=== PATIENT | female | born 1955 | race Caucasian/White ===

== ENCOUNTER 2020-02-19 11:42 | Outpatient (CLI) | payer OTHER, SELFPAY ==
--- NOTE | ~2020-02-19 | XR_ITS ---
EXAMINATION: XR ribs BI 3V w CXR 2V INDICATION: Pleurodynia TECHNIQUE: PA and lateral views of the chest and 3 views of the bilateral ribs were obtained. COMPARISON: 08/18/2014 FINDINGS: There is mild irregularity at the anterolateral aspect of the left ninth rib. Minimal airsp akilah opacities are seen in the right lung base. There is no pleural effusion or pneumothorax. The card iomediastinal silhouette is normal. There is mild thoracic spondylosis. IMPRESSION: 1. Possible nondisplaced fracture of the left ninth rib. 2. Minimal left basilar airspace opacity, consistent with atelectasis versus pneumonia. Reviewed, dictated and finalized at location A. IMPRESSION: 1. Possible nondisplaced fracture of the left ninth rib. 2. Minimal left basilar airspace opacity, consistent with atelectasis versus pn eumonia.
== END 2020-02-19 11:43 | disposition home or self-care (01) ==
LOC: ANHIMG 11:53
PROVIDERS: PCP Family Medicine; Visit Provider Family Medicine
DX: R07.81 Pleurodynia (principal); R05 Cough; R91.8 Other nonspecific abnormal finding of lung field
CPT/HCPCS: 71046; 71110

== ENCOUNTER → 2020-12-06 15:52 | Outpatient (CLI) | payer MEDICARE, SELFPAY ==
--- NOTE | ~2020-12-06 | MM_ITS ---
EXAMINATION: MM screening nicolás BI w kelly HISTORY: Screening TECHNIQUE: Craniocaudal and mediolateral oblique 3-D tomosynthesis images were obtained and synthetic 2-D images were generated. CAD analysis was submitted and interpreted. COMPARISON: Comparison to multiple prior studies sequentially, with oldest reviewed study dated 04/24. BREAST PARENCHYMAL COMPOSITION: There are scattered areas of fibroglandular density. FINDINGS: There is no evidence of suspicious mass, calcification, or architectural distortion to sugg est malignancy in either breast. There has been no suspicious interval change. IMPRESSION: 1. No mammographic evidence of malignancy. 2. Recommend routine screening mammography in one year. BI-RADS Category 1: Negative Reviewed, dictated and finalized at location A. 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
== END ==
PROVIDERS: Visit Provider Physician Assistant
DX: Z12.31 Encounter for screening mammogram for malignant neoplasm of breast (principal)
CPT/HCPCS: 77063; 77067

== ENCOUNTER → 2020-12-07 00:47 | Outpatient (CLI) | payer MEDICARE, SELFPAY ==
[2020-12-07 20:39] LABS: SARS-CoV-2 RNA PCR Negative
== END ==
PROVIDERS: Visit Provider Internal Medicine Gastroenterology
DX: Z01.812 Encounter for preprocedural laboratory examination (principal); Z20.822 Contact with and (suspected) exposure to COVID-19
CPT/HCPCS: C9803; U0003; U0005

== ENCOUNTER 2020-12-10 02:18 | Day surgery (SDC) | payer MEDICARE, SELFPAY ==
[2020-12-03 10:42] VITALS: BMI 28.9
[2020-12-10 08:37] VITALS: BP 128/69; PULSE 105; RESP 18; TEMP 36.5; O2SAT 95; BMI 29.0
[2020-12-10] MEDS: LACTATED RINGERS 1,000 ML 150 ML IV CONT (08:55)
--- NOTE | 2020-12-10 08:57 | WPDGICN ---
Assessment and Plan Assessment and plan (1) BRBPR (bright red blood per rectum): Code(s): K62.5 - Hemorrhage of anus and rectum Status: Acute Assessment and Plan: Patient had recent episode of rectal bleeding. Colonoscopy will be performed to establish etiology for this. High-fiber diet is advised as this may help if hemorrhoids are present. (2) History of colon polyps: Code(s): Z86.010 - Personal history of colonic polyps Status: Acute Assessment and Plan: Patient has a prior history of colon polyps for this reason surveillance colonoscopy is recommended now and at intervals in the future. GI Consult Note Consult date/time: 12/10/20 08:57 HPI: Mary Urias is a 65 year old female Presents for follow-up colonoscopy. Patient has a history of bright red blood per rectum that lasted for 3 days. This occurred several weeks ago. She did notice associated rectal Burning. She states her bowel habits have been regular. With balls of stool. She does have a prior history of colonoscopy 7 years ago were colon polyps were identified. Patient's family history is noncontributory. Patient denies any weight loss. She states her appetite has been normal. Review of Systems Review of Systems: All systems reviewed & are unremarkable except as noted in HPI and below PMFSH Past Medical History Medical History Chronic obstructive pulmonary disease Hyperlipidemia Hypertension Osteoarthritis Tobacco abuse Surgical History Surgical History History of delivery History of shoulder surgery History of tonsillectomy Family History Family History Father Diabetes mellitus Mother Diabetes mellitus Grandparent Family history of cardiovascular disease Social History Social History Smoking packs per day: 1 Smoking cigarettes per day: 20.0 Years smoked: 30 Smoking pack-years: 30.00 Smoking status: Current every day smoker Tobacco type: cigarettes Second hand tobacco smoke exposure: No Alcohol intake: never Substance use: never Substance use type: does not use Living arrangements: with family Gender identity (if verbalized by the patient): Female Spiritual care concerns: No Agree to blood products: Yes Meds Home Medications and Allergies Home Medications Medication Instructions Recorded Confirmed Type Lactobacillus reuteri 100 million 100 cell PO BID tablet 02/16/20 12/03/20 History cell chewable tablet aspirin 81 mg tablet,delayed 81 mg PO DAILY 02/16/20 12/03/20 History release calcium carbonate 500 mg-vitamin 1 tablet PO DAILY 02/16/20 12/03/20 History D3 200 unit-vitamin K2 90 mcg tablet diclofenac sodium 75 mg 75 mg PO BID 02/16/20 12/03/20 History tablet,delayed release garlic 1,000 mg capsule 1,000 mg PO DAILY 02/16/20 12/03/20 History multivitamin with minerals-folic 1 mg PO DAILY 02/16/20 12/03/20 History acid 0.4 mg tablet venlafaxine 150 mg 150 mg PO DAILY #90 cap 06/18/20 12/03/20 Rx capsule,extended release 24 hr venlafaxine 75 mg capsule,extended 75 mg PO DAILY #90 cap 06/18/20 12/03/20 Rx release 24 hr simvastatin 40 mg tablet 40 mg PO DAILY 11/25/20 12/03/20 History sodium,potassium,mag sulfates 17.5 See Rx Instructions PO .COMPLEX 12/02/20 Rx gram-3.13 gram-1.6 gram oral soln #354 ml arginine-vitamin C-vitamin E 12/03/20 History buspirone 10 mg PO BID 12/03/20 12/03/20 History umeclidinium-vilanterol [Anoro 1 ea INHALATION DAILY 12/03/20 12/03/20 History Ellipta] Allergies Allergy/AdvReac Type Severity Reaction Status Date / Time No Known Allergies Allergy Verified 12/10/20 08:35 Vital Signs Vital Signs - 24 hr 12/10/20 08:37 Temperature 97.
--- NOTE | 2020-12-10 09:11 | WPDANESEPPF ---
Anes - Initial Pre Proc Eval Procedure: Operation Date: 12/10/20 10:00 Proposed Procedures p Colonoscopy - Rayshawn Bills MD Date/Time: 12/10/20 09:11 Surgeon: Rayshawn Bills MD Pre Op Diagnosis: rectal bleeding Patient Data Age: 65 Gender: F Height: 4 ft 11 in Weight: 65.2 kg Last Vital Signs Temp 36.5 C 12/10/20 08:37 Pulse 105 H 12/10/20 08:37 Resp 18 12/10/20 08:37 BP 128/69 12/10/20 08:37 Pulse Ox 95 12/10/20 08:37 Allergies Allergy/AdvReac Type Severity Reaction Status Date / Time No Known Allergies Allergy Verified 12/10/20 08:35 Home Medications Medication Instructions Recorded Confirmed Type Lactobacillus reuteri 100 million 100 cell PO BID tablet 02/16/20 12/03/20 History cell chewable tablet aspirin 81 mg tablet,delayed 81 mg PO DAILY 02/16/20 12/03/20 History release calcium carbonate 500 mg-vitamin 1 tablet PO DAILY 02/16/20 12/03/20 History D3 200 unit-vitamin K2 90 mcg tablet diclofenac sodium 75 mg 75 mg PO BID 02/16/20 12/03/20 History tablet,delayed release garlic 1,000 mg capsule 1,000 mg PO DAILY 02/16/20 12/03/20 History multivitamin with minerals-folic 1 mg PO DAILY 02/16/20 12/03/20 History acid 0.4 mg tablet venlafaxine 150 mg 150 mg PO DAILY #90 cap 06/18/20 12/03/20 Rx capsule,extended release 24 hr venlafaxine 75 mg capsule,extended 75 mg PO DAILY #90 cap 06/18/20 12/03/20 Rx release 24 hr simvastatin 40 mg tablet 40 mg PO DAILY 11/25/20 12/03/20 History sodium,potassium,mag sulfates 17.5 See Rx Instructions PO .COMPLEX 12/02/20 Rx gram-3.13 gram-1.6 gram oral soln #354 ml arginine-vitamin C-vitamin E 12/03/20 History buspirone 10 mg PO BID 12/03/20 12/03/20 History umeclidinium-vilanterol [Anoro 1 ea INHALATION DAILY 12/03/20 12/03/20 History Ellipta] Patient hx anesthesia problems: none Family hx anesthesia problems: none PMFSH Past Medical History Medical History Chronic obstructive pulmonary disease Hyperlipidemia Hypertension Osteoarthritis Tobacco abuse Surgical History Surgical History History of delivery History of shoulder surgery History of tonsillectomy Family History Family History Father Diabetes mellitus Mother Diabetes mellitus Grandparent Family history of cardiovascular disease Social History Social History Smoking packs per day: 1 Smoking cigarettes per day: 20.0 Years smoked: 30 Smoking pack-years: 30.00 Smoking status: Current every day smoker Tobacco type: cigarettes Second hand tobacco smoke exposure: No Alcohol intake: never Substance use: never Substance use type: does not use Living arrangements: with family Gender identity (if verbalized by the patient): Female Spiritual care concerns: No Agree to blood products: Yes Anes - Eval Final PreProcedure Day of Procedure 12/10/20 09:11 Patient weight: overweight Heart: regular rate and rhythm Lungs: clear to auscultation Airway: Mallampati scale class II Neurological: alert and oriented Last oral intake: >/= 8 hours ASA classification: III Emergent: no Anesthetic plan: proceed Anesthesia type and monitoring: general GIVS and standard monitoring Informed Consent: The patient's anesthetic plan and its attendant risks and benefits were discussed with the patient/family/POA. Questions were solicited and answers provided to the satisfaction of the patient/family/POA.
[2020-12-10 10:16] VITALS: BP 157/60; PULSE 101; RESP 32; O2SAT 100
[2020-12-10 10:26] VITALS: BP 100/54; PULSE 100; RESP 12; O2SAT 100
[2020-12-10 10:36] VITALS: BP 96/61; PULSE 98; RESP 12; O2SAT 100
[2020-12-10 10:52] VITALS: BP 115/55; PULSE 95
== END 2020-12-10 11:07 | disposition home or self-care (01) ==
PROVIDERS: Visit Provider Internal Medicine Gastroenterology
PROC: 0DJD8ZZ Inspection of Lower Intestinal Tract, Via Natural or Artificial Opening Endoscopic (ICD-10-PCS; CPT 45378; principal; 2020-12-10 10:00)
DX: K62.5 Hemorrhage of anus and rectum (principal); K63.5 Polyp of colon; Z86.010 Personal history of colon polyps; J44.9 Chronic obstructive pulmonary disease, unspecified; E78.5 Hyperlipidemia, unspecified; I10 Essential (primary) hypertension; M19.90 Unspecified osteoarthritis, unspecified site; F17.210 Nicotine dependence, cigarettes, uncomplicated; K64.8 Other hemorrhoids
CPT/HCPCS: 45385; 88305; C9803; J2704; J7120; U0003; U0005

== ENCOUNTER 2021-01-08 16:13 | Outpatient (CLI) | payer MEDICARE, SELFPAY | END 2021-01-08 16:14 | disposition home or self-care (01) | LOC: ANHCOVIDVC 16:13 | PROVIDERS: PCP Physician Assistant | DX: Z23 Encounter for immunization (principal) | CPT/HCPCS: 0001A; 91300 ==

== ENCOUNTER 2021-01-29 16:12 | Outpatient (CLI) | payer MEDICARE, SELFPAY | END 2021-01-29 16:13 | disposition home or self-care (01) | LOC: ANHCOVIDVC 16:12 | PROVIDERS: PCP Physician Assistant | DX: Z23 Encounter for immunization (principal) | CPT/HCPCS: 0002A; 91300 ==

== ENCOUNTER → 2021-05-30 15:53 | Outpatient (CLI) | payer MEDICARE, SELFPAY ==
--- NOTE | ~2021-05-30 | XR_ITS ---
XR foot RT 2V DATE: 05/30/2021 16:12 INDICATION: Right foot pain. Toe pain. No injury. TECHNIQUE: 4 views COMPARISON: None FINDINGS: Prominent plantar calcaneal enthesopathy. Chronic old ossicles at the superior aspect of the anterior process of the talus, likely due to old a vulsion fracture injuries. Mild to moderate osteoarthritis at the first metatarsophalangeal joint. No fracture, dislocation, periosteal reaction or bone destruction is detected. IMPRESSION: Plantar calcaneal enthesopathy Osteoarthritis at the first metatarsophalangeal joint Reviewed, dictated and finalized at location B.
--- NOTE | ~2021-05-30 | XR_ITS ---
XR foot LT 2V DATE: 05/30/2021 16:11 INDICATION: Left foot pain, distal toe pain. No injury. TECHNIQUE: 4 views COMPARISON: None FINDINGS: Prominent plantar and mild posterior calcaneal enthesopathy. No fracture, dislocation, periosteal reaction or bone destruction. IMPRESSION: Calcaneal enthesopathy Reviewed, dictated and finalized at location B. IMPRESSION: Calcaneal enthesopathy
== END ==
PROVIDERS: PCP Nurse Practitioner Family; Visit Provider Nurse Practitioner Family
DX: M19.071 Primary osteoarthritis, right ankle and foot (principal); M77.32 Calcaneal spur, left foot; M77.31 Calcaneal spur, right foot
CPT/HCPCS: 73620

== ENCOUNTER 2021-12-08 10:27 | Outpatient (CLI) | payer MEDICARE, SELFPAY ==
--- NOTE | ~2021-12-08 | CT_ITS ---
EXAMINATION:CT lung screening DATE: 12/08/2021 10:43 INDICATION: Personal history of tobacco dependence. TECHNIQUE: Computed tomography (CT) of the chest was performed without intravenous contrast. Automate d exposure control and iterative reconstruction technique were employed. The dose-length product (DLP ) was 109.97 mGy-cm. COMPARISON: CT abdomen 03/28/2004 FINDINGS: There is mild scarring at the lung apices. There is moderate emphysema. There is an 8 mm no dule in right lung lower lobe with eccentric calcification. Calcified right hilar lymph nodes are con sistent with old granulomatous disease. There is a 7 mm nodule in right upper lobe. There are two 5 m m nodules in left lower lobe. No pleural effusion. The heart size is normal. No pericardial effusion. There is diffuse hepatic steatosis. There is mild thoracic spondylosis. IMPRESSION: 1. Lung-RADS category 4A: Probably suspicious. PET/CT or 3-month low-dose noncontrast chest CT is rec ommended. Reviewed, dictated and finalized at location E. R IMPRESSION: 1. Lung-RADS category 4A: Probably suspicious. PET/CT or 3-month low-dose nonco ntrast chest CT is recommended.
== END 2021-12-08 10:28 | disposition home or self-care (01) ==
LOC: ANHIMG 10:30
PROVIDERS: PCP Nurse Practitioner Family; Visit Provider Nurse Practitioner Family
DX: Z12.2 Encounter for screening for malignant neoplasm of respiratory organs (principal); Z87.891 Personal history of nicotine dependence; J44.9 Chronic obstructive pulmonary disease, unspecified; R91.8 Other nonspecific abnormal finding of lung field
CPT/HCPCS: 71271

== ENCOUNTER 2022-04-02 12:40 | Outpatient (CLI) | payer MEDICARE, SELFPAY ==
--- NOTE | ~2022-04-02 | CT_ITS ---
EXAMINATION: CT diagnostic chest wo con DATE: 04/02/2022 14:30 INDICATION: Pulmonary nodules TECHNIQUE: Computed tomography (CT) of the chest was performed without intravenous contrast. The dose -length product (DLP) was 104.11 mGy-cm. Automated exposure control and iterative reconstruction tech [employer] were employed. COMPARISON: 12/08/2021 FINDINGS: There is moderate emphysema. There is a stable 7 mm nodule in the right upper lobe. There i s a stable nodule with eccentric calcification in the right lower lobe. The previously described 5 mm nodules of the left lower lobe have slightly decreased in size. No new pulmonary nodules are identif ied. There is no pleural effusion or pneumothorax. No pathologically enlarged thoracic lymph nodes ar e identified. The heart size is normal. Calcified pulmonary nodules and calcified right hilar and med iastinal lymph nodes are consistent with old granulomatous disease. There is mild thoracic spondylosi s. IMPRESSION: 1. Stable right lung nodules and decreased left lung nodules. Lung-RADS category 2: Benign appearance or behavior. Continue annual screening with noncontrast low-dose chest CT in 12 months. Reviewed, dictated and finalized at location F. IMPRESSION: 1. Stable right lung nodules and decreased left lung nodules. Lung-RADS categor y 2: Benign appearance or behavior. Continue annual screening with noncontrast low-dose chest CT in 12 months.
--- NOTE | 2022-04-02 12:41 | ECHO_ITS ---
Patient Info Name: Mary Urias Age: 67 years : 1955 Gender: Female Ht: 59 in Wt: 152 lbs BSA: 1.72 m2 HR: 105 bpm BP: 136 / 85 mmHg Technical Quality: Fair Exam Date: 04/02/2022 1:09 PM Exam Location: [facility] Patient Status: Outpatient Admit Date: 04/02/2022 Staff Ordering Physician: Juan Alberto Srivastava MD Washing Machine Loader And Puller: Iman Hassan RDCS Attending Provider: Juan Alberto Srivastava MD Referring Physician: Carola STEVENS; Exam Type: CA echo doppler color flow Study Info Indications R06.00 - Dyspnea, unspecified Complete two-dimensional, color flow and Doppler transthoracic echocardiogram is performed. Summary 1. Complete two-dimensional, color flow and Doppler transthoracic echocardiogram is performed. 2. Left ventricular chamber dimension is normal. 3. Left ventricular systolic function is normal, estimated at 60-65%. 4. The left ventricular diastolic function is grade I diastolic dysfunction. 5. E/e' 9 is minimally elevated. 6. Global longitudinal strain is abnormal at -12.2%. 7. No pulmonary hypertension, estimated pulmonary arterial systolic pressure is 16 mmHg. Left Ventricle E/e' 9 is minimally elevated. Global longitudinal strain is abnormal at -12.2%. Left ventricular chamber dimension is normal. Left ventricular systolic function is normal, estimated at 60-65%. The left ventricular diastolic function is grade I diastolic dysfunction. Right Ventricle Right ventricular chamber dimension is normal. Right ventricular systolic function is normal. Left Atria Left atrial chamber dimension is normal. Right Atria Right atrial chamber dimension is normal. Aortic Valve The aortic valve is trileaflet. There is no aortic valve stenosis. There is no aortic valve regurgitation. Pulmonic Valve There is no pulmonic regurgitation. Mitral Valve There is no mitral valve stenosis. There is no mitral valve regurgitation. Tricuspid Valve There is no tricuspid valve regurgitation. No pulmonary hypertension, estimated pulmonary arterial systolic pressure is 16 mmHg. Pericardium/Pleural There is no pericardial effusion. Inferior Vena Cava Normal inferior vena cava with >50% collapse upon inspiration consistent with normal right atrial pressure, 5 mmHg. Aorta The aortic root size at the sinus of Valsalva is normal. Left Ventricular Outflow Tract Name Value Normal LVOT 2D LVOT Diameter 1.9 cm LVOT Doppler LVOT Peak Gradient 4 mmHg LVOT Mean Gradient 2 mmHg LVOT VTI 15 cm LVOT VTI/AV VTI Ratio 0.7 LVOT Stroke Volume 41 ml LVOT CO 4.2 l/min LVOT CI 2.4 l/min/m2 Pulmonic Valve Name Value Normal RVOT Doppler
--- NOTE | 2022-04-02 16:29 | WPDSIXMINUTE ---
Six Minute Walk Procedure Procedure Performed Pulmonary Stress Test (6 min walk) Six Minute Walk Six Minute Walk: This is a 6 minute walk test. The test was performed and interpreted in accordance with the 2014 ERS/ATS task force guidelines. Findings: The patient's resting room air oxygen saturation measured by pulse oximetry was 91% and heart rate was 113 bpm. Patient ambulated for 213 meters and oxygen saturation remained 89 to 94%. Heart rate at the end of the study was 117 bpm. The patient did not qualify for supplemental oxygen at rest or with ambulation. There are no prior studies for comparison.
--- NOTE | 2022-04-02 16:31 | WPDPFTINT ---
PFT Procedure Performed PFT Procedure Performed Spirometry with Pre/Post Bronchodilator Plethysmography (Lung Vol) Diffusing Cap (DLCO) Flow Vol Loop PFT Interpretation This is a pulmonary function test with pre and post-bronchodilator spirometry, plethysmography and diffusing capacity. The test was performed and results interpreted in accordance with the 2019 and 2005 ATS/ERS Task Force guidelines respectively using the Global Lung Function Initiative-2012 reference equations. Patient demonstrated good effort and cooperation. Reproducibility criteria were met. The quality of the pre bronchodilator spirometry maneuver was Grade A and post bronchodilator spirometry maneuver was Grade A. Findings: Spirometry: There is decreased maximal expiratory airflow at low lung volumes with concave expiratory flow tracing. The contour the inspiratory flow tracing is normal. The pre bronchodilator FVC is 2.99 L, 122% predicted. The pre bronchodilator FEV1 is 2.00 L, 103% predicted. The pre bronchodilator FEV1: FVC ratio 67%. The post bronchodilator FVC is 2.92 L, representing a 2% decrease. The post bronchodilator FEV1 is 1.96 L, representing a 2% decrease. The post bronchodilator FEV1: FVC ratio 67%. Plethysmography: The total lung capacity is 4.89 L, 113% predicted. The functional residual capacity is 1.65 L, 68% predicted. The residual volume is 1.62 L, 86% predicted. Diffusing capacity: The diffusing capacity unadjusted for hemoglobin and carboxyhemoglobin is 7.2, 38% predicted. The diffusing capacity adjusted for alveolar volume is 2.09, 46% predicted. In comparison to previous pulmonary function test on 03/21/2019 the post bronchodilator FVC is unchanged from 2.95 L to 2.92 L. The post bronchodilator FEV1 is unchanged from 2.02 L to 1.96 L. The total lung capacity is unchanged from 4.54 L to 4.89 L. The functional residual capacity is decreased from 2.66 L to 1.65 L. The residual volume is unchanged from 1.62 L to 1.62 L. The diffusing capacity unadjusted for hemoglobin and carboxyhemoglobin is unchanged from 7.9 to 7.2. The diffusing capacity adjusted for alveolar volume is unchanged from 2.29 to 2.09. Impression: There is a mild obstructive abnormality with a normal FEV1 and without significant improvement after inhaling a single dose of albuterol. The lung volumes are normal. The diffusing capacity unadjusted for hemoglobin and carboxyhemoglobin is severely decreased and remains moderately decreased when adjusted for alveolar volume. When compared to previous pulmonary function test on 03/21/2019 there has been a greater than anticipated time dependent decrease in functional residual capacity and no significant change in the FVC, FEV1, total lung capacity, residual volume or diffusing capacity. Clinical correlation is recommended.
== END 2022-04-02 12:41 | disposition home or self-care (01) ==
LOC: ANHCARD 12:40
PROVIDERS: PCP Nurse Practitioner Family; Visit Provider Internal Medicine Pulmonary Disease
DX: R91.8 Other nonspecific abnormal finding of lung field (principal); R06.00 Dyspnea, unspecified; J43.9 Emphysema, unspecified; R94.2 Abnormal results of pulmonary function studies
CPT/HCPCS: 71250; 93306; 94060; 94618; 94726; 94729

== ENCOUNTER 2023-05-10 13:03 | Outpatient (CLI) | payer MEDICARE, SELFPAY ==
--- NOTE | ~2023-05-10 | CT_ITS ---
EXAMINATION:CT lung screening DATE: 05/10/2023 13:53 INDICATION: Tobacco use. Current smoker with 30 pack year history. TECHNIQUE: Computed tomography (CT) of the chest was performed without intravenous contrast. Automate d exposure control and iterative reconstruction technique were employed. The dose-length product (DLP ) was 135.57 mGy-cm. COMPARISON: Chest CT 04/02/2022 FINDINGS: There is moderate emphysema. There are chronic benign process opacities and septal thickeni ng in the lungs with a peripheral predominance. Calcified bilateral lung nodules and calcified right hilar and mediastinal lymph nodes are consistent with old granulomatous disease. There is a 4 mm nodu le in right lower lobe. There is a 6 mm nodule in right lower lobe. There is a 4 mm nodule in left lo wer lobe. There is a 5 mm nodule in left lower lobe. These findings are stable from 04/02/2022. No pleu ral effusion. The heart size is normal. No pericardial effusion. There is a cyst in left kidney. Ther e is diffuse hepatic steatosis. There is mild thoracic spondylosis. IMPRESSION: 1. Lung-RADS category 2: Benign appearance or behavior. Continue annual screening with noncontrast lo w-dose chest CT in 12 months. Reviewed, dictated and finalized at location E. IMPRESSION: 1. Lung-RADS category 2: Benign appearance or behavior. Continue annual screeni ng with noncontrast low-dose chest CT in 12 months.
== END 2023-05-10 13:04 | disposition home or self-care (01) ==
PROVIDERS: PCP Nurse Practitioner Family; Visit Provider Internal Medicine Pulmonary Disease
DX: Z12.2 Encounter for screening for malignant neoplasm of respiratory organs (principal); F17.210 Nicotine dependence, cigarettes, uncomplicated
CPT/HCPCS: 71271

== ENCOUNTER → 2023-09-28 12:09 | Outpatient (CLI) | payer MEDICARE, SELFPAY ==
--- NOTE | ~2023-09-28 | MM_ITS ---
EXAMINATION: MM screening nicolás BI w kelly HISTORY: Screening mammogram TECHNIQUE: Craniocaudal and mediolateral oblique 3-D tomosynthesis images were obtained and synthetic 2-D images were generated. CAD analysis was submitted and interpreted. COMPARISON: December 06, 2020 bilateral screening mammogram BREAST PARENCHYMAL COMPOSITION: The breasts are almost entirely fatty. FINDINGS: There is no evidence of suspicious mass, calcification, or architectural distortion to sugg est malignancy in either breast. There has been no suspicious interval change. IMPRESSION: 1. No mammographic evidence of malignancy. 2. Recommend routine screening mammography in one year. BI-RADS Category 1: Negative Reviewed, dictated and finalized at location A. PAD CUTTER
--- NOTE | ~2023-09-28 | DEXA_ITS ---
Bone Density Report Name: VALARIE LOMBARDO Age: 68 Sex: Female Ethnicity: White Date of : 1955 Indication: postmenopausal; screening for osteoporosis; height loss; asthma or emphysema; Referring Provider: JULISA CORDOVA Study: Bone densitometry was performed. Exam Date: September 28, 2023 Accession number: [id number] Bone Density: Region BMD T-score Z-score Classification AP Spine (L1-L4) 1.049 0.0 2.0 Normal Femoral Neck (Left) 0.726 -1.1 0.6 Osteopenia Total Hip (Left) 0.934 -0.1 1.4 Normal Femoral Neck (Right) 0.683 -1.5 0.2 Osteopenia Total Hip (Right) 0.883 -0.5 0.9 Normal Total Hip Mean 0.909 -0.3 1.2 Normal World Health Organization criteria for BMD impression classify patients as: Normal (T-score at or above -1.0), Osteopenia (T-score between -1.0 and -2.5), or Osteoporosis (T-score at or below -2.5). 10-year Fracture Risk(1): Major Osteoporotic Fracture 9.7% Hip Fracture 2.0% Reported Risk Factors: [place] (), Neck BMD=0.683, BMI=29.8, smoking (1) FRAX(R) Version 3.08. Fracture probability calculated for an untreated patient. Fracture probability may be lower if the patient has received treatment. Previous Exams: Region Exam Age BMD T-score BMD Change BMD Change Date g/cm2 vs Baseline vs Previous AP Spine(L1-L4) 09/28/2023 68 1.049 0.0 0.095* 0.095* 04/05/2015 60 0.955 -0.8 Total Hip(Left) 09/28/2023 68 0.934 -0.1 0.039* 0.039* 04/05/2015 60 0.896 -0.4 Total Hip(Right) 09/28/2023 68 0.883 -0.5 0.053* 0.053* 04/05/2015 60 0.829 -0.9 *Denotes significance at 95% confidence level, LSC for AP Spine = 0.022 g/cm2, LSC for Total Hip = 0.027 g/cm2 Clinical Information Provided by Patient: Smokes Has used the following medications: Calcium, MTV, vit D included in Calcium Has the following medical conditions: Asthma or Emphysema Patient maximum height was 60 Menopause Age: 55 No regular weight bearing exercise Drinks caffeinated beverages Onset of menses at age 14 Number of children 1 Impression: The patient has low bone mass, based on the Right Femoral Neck T-score. The patient has an estimated ten-year risk of hip fracture of 2% and an estimated ten-year risk of major fracture of 9.7%, based on the WHO FRAX algorithm. The patient has risk factors, including: smoking. No significant bone loss was observed. Discussion: BONE DENSIT
== END ==
PROVIDERS: PCP Nurse Practitioner Family; Visit Provider Nurse Practitioner Family
DX: Z12.31 Encounter for screening mammogram for malignant neoplasm of breast (principal); M85.88 Other specified disorders of bone density and structure, other site
CPT/HCPCS: 77063; 77067; 77080

== ENCOUNTER 2024-07-31 13:34 | Outpatient (CLI) | payer MEDICARE, SELFPAY ==
--- NOTE | ~2024-07-31 | CT_ITS ---
CT Scan of the Chest without Contrast: Clinical Indication: Lung cancer screening, nicotine dependence Technique: Contiguous sections were acquired throughout the chest without intravenous contrast. Dose reduction technique was used on this scan by utilizing automated exposure control and iterative recon struction technique. The dose-length product (DLP) was 128.18 mGy-cm. COMPARISON: 05/10/2023 Findings: There is no evidence of any significant mediastinal, hilar or axillary lymphadenopathy. Mild coronary artery calcification are present. Calcified subcarinal and right hilar lymph nodes are present. There is no evidence of pleural or pericardial effusion. There is advanced emphysema with areas of peripheral chronic interstitial change. Stable 3 mm left lo wer lobe pulmonary nodule. Images through the upper abdomen reveal 7 mm nonobstructing left renal stone. Impression: Lung RADS 2: Benign appearance. 12 month follow-up CT advised. Reviewed, dictated and finalized at [facility]. Impression: Lung RADS 2: Benign appearance. 12 month follow-up CT advised.
== END 2024-07-31 13:35 | disposition home or self-care (01) ==
LOC: ANHIMG 13:36
PROVIDERS: PCP Nurse Practitioner Family; Visit Provider Physician Assistant
DX: Z12.2 Encounter for screening for malignant neoplasm of respiratory organs (principal); Z87.891 Personal history of nicotine dependence
CPT/HCPCS: 71271

== ENCOUNTER 2024-08-22 11:39 | Outpatient (CLI) | payer MEDICARE, SELFPAY ==
--- NOTE | ~2024-08-22 | MMUS_ITS ---
EXAMINATION: MM diagnostic nicolás LT w kelly, US breast LT limited HISTORY: Left breast tenderness TECHNIQUE: Additional 3-D tomosynthesis images of the left breast were performed and synthetic 2-D im ages were generated. CAD analysis was submitted and interpreted. High resolution Limited left breast ultrasound was performed. COMPARISON: Comparison to multiple prior studies sequentially, with oldest reviewed study dated 03/2015. BREAST PARENCHYMAL COMPOSITION: Not Dense: The breasts are almost entirely fatty. FINDINGS: MAMMOGRAPHIC FINDINGS: There are no suspicious masses, calcifications or architectural distortion in the left breast to sugg est malignancy. ULTRASOUND: Limited left breast ultrasound: Normal heterogeneous echotexture without focal solid or cystic mass. IMPRESSION: 1. No evidence for malignancy in the left breast. 2. Routine yearly screening mammogram and regular clinical breast examination are recommended. BI-RADS Category 1: Negative Reviewed, dictated and finalized at location [facility]. IMPRESSION: 1. No evidence for malignancy in the left breast. 2. Routine yearly screening mammogram and regular clinical breast examination a re recommended. BI-RADS Category 1: Negative
== END 2024-08-22 11:40 | disposition home or self-care (01) ==
LOC: MICIMG 11:41
PROVIDERS: PCP Nurse Practitioner Family; Visit Provider Nurse Practitioner Family
DX: N63.20 Unspecified lump in the left breast, unspecified quadrant (principal); N64.4 Mastodynia
CPT/HCPCS: 76642; 77061; 77065; G0279

== ENCOUNTER 2025-01-25 12:10 | Outpatient (CLI) | payer MEDICARE, SELFPAY ==
--- NOTE | ~2025-01-25 | MM_ITS ---
EXAMINATION: MM screening [facility] BI w kelly HISTORY: Screening TECHNIQUE: Craniocaudal and mediolateral oblique 3-D tomosynthesis images were obtained and synthetic 2-D images were generated. CAD analysis was submitted and interpreted. COMPARISON: 09/28/2023 and dating back to 04/05/2015 BREAST PARENCHYMAL COMPOSITION: There are scattered areas of fibroglandular density. FINDINGS: Punctate and bulky calcifications are detected bilaterally, stable and benign in appearance . Stable parenchymal pattern without suspicious microcalcifications, architectural distortion, discrete masses or significant asymmetry. IMPRESSION: 1. No mammographic evidence of malignancy. 2. Recommend routine screening mammography in one year. BI-RADS Category 2: Benign finding(s). Reviewed, dictated and finalized at location [facility].
== END 2025-01-25 12:11 | disposition home or self-care (01) ==
LOC: MICIMG 12:11
PROVIDERS: PCP Nurse Practitioner Family; Visit Provider Nurse Practitioner Family
DX: Z12.31 Encounter for screening mammogram for malignant neoplasm of breast (principal)
CPT/HCPCS: 77063; 77067

== ENCOUNTER 2025-08-23 14:05 | Outpatient (CLI) | payer MEDICARE, SELFPAY ==
--- NOTE | ~2025-08-23 | CT_ITS ---
CT lung screening INDICATION: Tobacco use. COMPARISON: 07/31/2024. TECHNIQUE: CT examination of the entire thorax without contrast was performed using low dose technique. Thin section axial, sagittal and coronal images were included to increase sensitivity for small lung nodules. FINDINGS: PULMONARY NODULES: 3 mm pulmonary nodule in the left lower lobe measured on axial image 75 is stable. OTHER PULMONARY FINDINGS: No significant nonnodular pleural or parenchymal abnormality is noted. There are diffuse centrilobular emphysema. Subpleural reticulation are noted. No pathologically enlarged lymph nodes are present. Normal heart size. UPPER ABDOMEN AND PERIPHERAL SOFT TISSUE: Limited views of the upper abdomen and peripheral soft tissue demonstrated no abnormalities. OSSEOUS STRUCTURES: Bone window shows no aggressive blastic or lytic lesions. IMPRESSION: 1. Lung-RADS category 2: Nodules with a very low likelihood of becoming a clinically active cancer due to size or lack of growth. Recommendations: 1 or 2: Annual screening with low-dose CT in 12 months. 2. Moderate emphysematous changes are present. All CT scans at this facility are performed using low dose modulation techniques as appropriate to perform exam including the following: automated exposure control; use of iterative reconstruction technique; adjustment of the mA and/or kV according to patient size (this includes techniques or standardized protocols for targeted exams where dose is matched to indication/reason for exam). Reviewed, dictated and finalized at location [facility]. IMPRESSION: 1. Lung-RADS category 2: Nodules with a very low likelihood of becoming a clini maegan active cancer due to size or lack of growth. Recommendations: 1 or 2: Annual screening with low-dose CT in 12 months. 2. Moderate emphysematous changes are present. All CT scans at this facility are performed using low dose modulation techniqu es as appropriate to perform exam including the following: automated exposure c ontrol; use of iterative reconstruction technique; adjustment of the mA and/or kV according to patient size (this includes techniques or standardized protocol s for targeted exams where dose is matched to indication/reason for exam).
== END 2025-08-23 14:06 | disposition home or self-care (01) ==
PROVIDERS: PCP Nurse Practitioner Family; Visit Provider Physician Assistant
DX: Z12.2 Encounter for screening for malignant neoplasm of respiratory organs (principal); R91.8 Other nonspecific abnormal finding of lung field; J43.9 Emphysema, unspecified; Z87.891 Personal history of nicotine dependence
CPT/HCPCS: 71271